=== PATIENT | female | born 1960 | race Caucasian/White ===

== ENCOUNTER 2018-04-07 21:44 | Inpatient (IN) | payer MEDICAID ==
[~2018-04-07] VITALS: Ht 167.6 cm; Wt 97.5 kg
[2018-04-07 21:51] VITALS: BP 129/73
[2018-04-07] MEDS ORDERED: PIPERACILLIN/TAZOBACTAM 3.375 GM in DEXTROSE 5% 50 ML IV ONE (22:15)
[2018-04-07] MEDS ORDERED: ACETAMINOPHEN EXTRA STRENGTH 500 MG TAB PO ONE (22:15)
[2018-04-07] MEDS ORDERED: LORazepam 2 MG/ML VIAL IVP ONE (22:15)
[2018-04-07] MEDS ORDERED: NACL 0.9% 2,500 ML IV ONE (22:15)
[2018-04-07] MEDS ORDERED: PIPERACILLIN/TAZOBACTAM 3.375 GM VIAL IV ONE (22:29)
[2018-04-07 22:45] LABS: ANION GAP 5.7 (8-16); CARBON DIOXIDE 29.2 mmol/L (21-32); POTASSIUM 3.9 mmol/L (3.5-5.1); TOTAL BILIRUBIN 0.5 mg/dL (0.0-1.0)
[2018-04-07 23:04] LABS: HEMATOCRIT 34.7 % (36-48); MEAN CORPUSCULAR HEMOGLOBIN 26 pg (27-31); MEAN CORPUSCULAR HGB CONC 32 g/dL (33-37); MEAN CORPUSCULAR VOLUME 82.8 fL (80-94); PLATELET COUNT (AUTO) 280 K/uL (140-450); RED BLOOD CELL COUNT(AUTO) 4.18 MIL/uL (4.20-5.40); RED CELL DISTRIBUTION WIDTH 16.4 % (11.6-13.7)
[2018-04-07 23:16] LABS: BARBITURATE, URINE NEG. ng/ml (NEG <=200); BENZODIAZEPINE, URINE NEG. ng/mL (NEG <=200); CANNABINOID, URINE POS. ng/mL (NEG <=50); COCAINE, URINE NEG. ng/mL (NEG <=300); OPIATE, URINE POS. ng/mL (NEG <=2000); PHENCYCLIDINE SCREEN,URINE NEG. ng/mL (NEG <=25)
[2018-04-07 23:28] LABS: WHITE BLOOD COUNT (AUTO) 19.6 K/uL (4.8-10.8)
[2018-04-07 23:29] LABS: LYMPHOCYTES % (MANUAL) 7 % (20-46); MONOCYTES % (MANUAL) 5 % (5-12)
[2018-04-07 23:38] LABS: PROTHROMBIN TIME 10.4 secs (10.8-13.4)
[2018-04-07] MEDS ORDERED: VANCOMYCIN 1,000 MG in DEXTROSE 5% 250 ML IV ONE (23:55)
[2018-04-07 23:59] LABS: APPEARANCE,URINE CLOUDY (CLEAR); BILIRUBIN,URINE NEGATIVE (NEGATIVE); BLOOD, URINE 3+ (NEGATIVE); COLOR,URINE YELLOW (YELLOW); LEUKOCYTE ESTERASE ,URINE 2+ (NEGATIVE); NITRITE, URINE NEGATIVE (NEGATIVE); UGLUCOSE NEGATIVE (NEGATIVE)
[2018-04-08 00:01] LABS: RBC,URINE TOO NUMEROUS TO COUN /HPF (0-5); WBC,URINE TOO MANY TO COUNT /HPF (0-5)
[2018-04-08] MEDS ORDERED: VANCOMYCIN 1,000 MG VIAL ONE (00:06)
[2018-04-08] MEDS ORDERED: KETOROLAC 30 MG/ML VIAL IVP ONE (00:35)
[2018-04-08] MEDS ORDERED: ONDANSETRON 4 MG/2 ML VIAL IM/IVP PRN (01:10)
[2018-04-08] MEDS ORDERED: MORPHINE SULFATE 4 MG/ML SYR IVP PRN (01:10)
[2018-04-08] MEDS ORDERED: LORazepam 2 MG/ML VIAL IM/IVP PRN ×2 (01:10→16:55)
[2018-04-08] MEDS ORDERED: DOCUSATE SODIUM 100 MG GELCAP PO PRN (01:10)
[2018-04-08] MEDS ORDERED: ACETAMINOPHEN 325 MG TAB PO PRN (01:10)
[2018-04-08 01:49] LABS: MAGNESIUM 1.6 mg/dL (1.8-2.4); PHOSPHORUS 2.4 mg/dL (2.5-4.9); THYROID STIMULATING HORMONE 1.88 uIU/mL (0.34-3.74)
[2018-04-08 02:00] VITALS: BP 110/70
[2018-04-08] MEDS: NACL 0.9% 1,000 ML IV SCH ×3 (02:02→23:21)
[2018-04-08 04:00] VITALS: BP 105/65
[2018-04-08] MEDS ORDERED: VANCOMYCIN PER PHARMACY MC PRN (04:00)
[2018-04-08] MEDS ORDERED: MECLIZINE 25 MG TAB PO PRN (04:00)
[2018-04-08] MEDS ORDERED: SODIUM PHOS / POTASSIUM PHOS 1 PKT PDR PO SCH (04:30)
[2018-04-08] MEDS ORDERED: MAG SULF 2000 MG/WATER PREMIX 50 ML IV SCH (04:30)
[2018-04-08] MEDS: PIPER/TAZO 3.375GM/D5W PREMIX 50 ML IV SCH ×4 (05:14→23:21)
[2018-04-08] MEDS ORDERED: PIPERACILLIN/TAZOBACTAM 3.375 GM VIAL IV ONE (05:17)
[2018-04-08 07:21] LABS: HEMATOCRIT 33.4 % (36-48); HEMOGLOBIN 10.4 g/dL (12.0-16.0); PLATELET COUNT (AUTO) 236 K/uL (140-450); RED BLOOD CELL COUNT(AUTO) 3.97 MIL/uL (4.20-5.40); RED CELL DISTRIBUTION WIDTH 16.9 % (11.6-13.7)
[2018-04-08 07:27] LABS: MEAN CORPUSCULAR HEMOGLOBIN 26 pg (27-31); MEAN CORPUSCULAR HGB CONC 31 g/dL (33-37); MEAN CORPUSCULAR VOLUME 84.1 fL (80-94)
[2018-04-08] MEDS ORDERED: MORPHINE SULFATE 2 MG/ML SYR IVP PRN (07:46)
[2018-04-08 07:49] LABS: ANION GAP 2.6 (8-16); CARBON DIOXIDE 26.7 mmol/L (21-32); CREATININE 0.9 mg/dL (0.6-1.3); POTASSIUM 3.3 mmol/L (3.5-5.1)
[2018-04-08 07:50] LABS: PHOSPHORUS 3.4 mg/dL (2.5-4.9)
[2018-04-08 08:00] VITALS: BP 150/85
[2018-04-08 09:04] LABS: MAGNESIUM 13.7 mg/dL (1.8-2.4)
[2018-04-08 09:12] LABS: LYMPHOCYTES % (MANUAL) 7 % (20-46); MONOCYTES % (MANUAL) 4 % (5-12)
[2018-04-08] MEDS: LORazepam 2 MG/ML VIAL IM/IVP PRN ×2 (10:16→16:46)
[2018-04-08 12:00] VITALS: BP 127/68
[2018-04-08] MEDS: VANCOMYCIN 1GM/DEXT 5% PREMIX 200 ML IV SCH (13:27)
[2018-04-08 16:00] VITALS: BP 122/74
[2018-04-08] MEDS ORDERED: cloNIDine 0.1 MG TAB PO SCH (16:45)
[2018-04-08] MEDS ORDERED: LORazepam 2 MG/ML VIAL IVP ONE (19:30)
[2018-04-08 20:00] VITALS: BP 112/64
[2018-04-08] MEDS: HYDROcodone/APAP 5/325 MG 1 TAB TAB PO PRN (20:50)
[2018-04-09] VITALS: BP 96/63
[2018-04-09] MEDS: VANCOMYCIN 1GM/DEXT 5% PREMIX 200 ML IV SCH (00:44)
[2018-04-09 04:00] VITALS: BP 122/77
[2018-04-09] MEDS: PIPER/TAZO 3.375GM/D5W PREMIX 50 ML IV SCH ×3 (05:14→17:49)
[2018-04-09] MEDS: HYDROcodone/APAP 5/325 MG 1 TAB TAB PO PRN (05:18)
[2018-04-09 06:21] LABS: BASOPHILS % (AUTO) 0.2 % (0.0-2.0); EOSINOPHILS # (AUTO) 0.1 K/uL (0-0.4); HEMOGLOBIN 10.8 g/dL (12.0-16.0); LYMPHOCYTES # (AUTO) 1.2 K/uL (2.5-16.5); LYMPHOCYTES % (AUTO) 8.6 % (20.5-51.1); MEAN CORPUSCULAR HEMOGLOBIN 27 pg (27-31); MEAN CORPUSCULAR HGB CONC 32 g/dL (33-37); MEAN CORPUSCULAR VOLUME 83.6 fL (80-94); MONOCYTES # (AUTO) 1.2 K/uL (0.8-1.0); MONOCYTES % (AUTO) 8.6 % (1.7-9.3); NEUTROPHILS # (AUTO) 11.1 K/uL (1.8-7.7); NEUTROPHILS % (AUTO) 81.6 % (42.2-75.2); PLATELET COUNT (AUTO) 220 K/uL (140-450); RED BLOOD CELL COUNT(AUTO) 4.07 MIL/uL (4.20-5.40); RED CELL DISTRIBUTION WIDTH 16.9 % (11.6-13.7); WHITE BLOOD COUNT (AUTO) 13.7 K/uL (4.8-10.8)
[2018-04-09 07:52] LABS: ANION GAP 12.1 (8-16); CARBON DIOXIDE 25.2 mmol/L (21-32); CREATININE 0.8 mg/dL (0.6-1.3); POTASSIUM 3.3 mmol/L (3.5-5.1)
[2018-04-09 07:54] LABS: CHOL/HDL RATIO 7.1 (1-4.5)
[2018-04-09 07:55] LABS: MAGNESIUM 2.2 mg/dL (1.8-2.4); PHOSPHORUS 2.2 mg/dL (2.5-4.9)
[2018-04-09 08:00] VITALS: BP 97/70
[2018-04-09] MEDS ORDERED: METHADONE 10 MG TAB PO SCH (10:30)
[2018-04-09] MEDS ORDERED: SODIUM PHOS / POTASSIUM PHOS 1 PKT PDR PO SCH (11:00)
[2018-04-09] MEDS: NACL 0.9% 1,000 ML IV SCH ×2 (11:26→21:28)
[2018-04-09 12:00] VITALS: BP 119/72
[2018-04-09] MEDS: VANCOMYCIN 750 MG in DEXTROSE 5% 250 ML IV SCH ×2 (13:32→21:28)
[2018-04-09] MEDS ORDERED: POTASSIUM CHLORIDE 10 MEQ TABER PO SCH (14:30)
[2018-04-09] MEDS: KETOROLAC 30 MG/ML VIAL IM PRN (14:40)
[2018-04-09 16:00] VITALS: BP 120/95
[2018-04-09 20:00] VITALS: BP 116/79
[2018-04-10] VITALS: BP 99/60
[2018-04-10] MEDS: PIPER/TAZO 3.375GM/D5W PREMIX 50 ML IV SCH ×3 (00:59→12:53)
[2018-04-10] MEDS: KETOROLAC 30 MG/ML VIAL IM PRN (03:54)
[2018-04-10] MEDS: VANCOMYCIN 750 MG in DEXTROSE 5% 250 ML IV SCH ×2 (03:56→13:00)
[2018-04-10 04:00] VITALS: BP 111/76
[2018-04-10] MEDS: NACL 0.9% 1,000 ML IV SCH (05:12)
[2018-04-10 06:32] LABS: BASOPHILS % (AUTO) 0.5 % (0.0-2.0); EOSINOPHILS # (AUTO) 0.2 K/uL (0-0.4); EOSINOPHILS % (AUTO) 3.2 % (0.0-4.0); HEMATOCRIT 29.8 % (36-48); HEMOGLOBIN 9.6 g/dL (12.0-16.0); LYMPHOCYTES # (AUTO) 1.4 K/uL (2.5-16.5); LYMPHOCYTES % (AUTO) 18.1 % (20.5-51.1); MEAN CORPUSCULAR HEMOGLOBIN 27 pg (27-31); MEAN CORPUSCULAR HGB CONC 32 g/dL (33-37); MEAN CORPUSCULAR VOLUME 83.5 fL (80-94); MONOCYTES # (AUTO) 0.9 K/uL (0.8-1.0); MONOCYTES % (AUTO) 12.1 % (1.7-9.3); NEUTROPHILS # (AUTO) 5.1 K/uL (1.8-7.7); NEUTROPHILS % (AUTO) 66.1 % (42.2-75.2); PLATELET COUNT (AUTO) 234 K/uL (140-450); RED BLOOD CELL COUNT(AUTO) 3.57 MIL/uL (4.20-5.40); WHITE BLOOD COUNT (AUTO) 7.7 K/uL (4.8-10.8)
[2018-04-10 06:57] LABS: MAGNESIUM 1.9 mg/dL (1.8-2.4); PHOSPHORUS 2.9 mg/dL (2.5-4.9)
[2018-04-10 07:03] LABS: ANION GAP 7.5 (8-16); CARBON DIOXIDE 27.3 mmol/L (21-32); CREATININE 0.8 mg/dL (0.6-1.3); POTASSIUM 3.8 mmol/L (3.5-5.1)
[2018-04-10] MEDS ORDERED: SULF-58 PO (07:57)
[2018-04-10] MEDS ORDERED: ATOR20TA40 PO (07:57)
[2018-04-10] MEDS ORDERED: ASPI-1173 PO (07:57)
[2018-04-10 08:00] VITALS: BP_SYST 111; BP_SYST 115; BP_DIAS 76
[2018-04-10] MEDS ORDERED: ATORVASTATIN 20 MG TAB PO SCH (09:00)
[2018-04-10] MEDS ORDERED: ECOTRIN 81 MG TABEC PO SCH (09:00)
[2018-04-10] MEDS ORDERED: METHADONE 10 MG TAB PO SCH (09:00)
== END 2018-04-10 14:50 | disposition home or self-care (01) | DRG 720 ==
LOC: MED 21:44 → MTU 04-08 01:07
PROVIDERS: ADMIT General Practice; ATTEND General Practice
DX: A41.9 Sepsis, unspecified organism (principal); G92 Toxic encephalopathy; E44.0 Moderate protein-calorie malnutrition; E83.39 Other disorders of phosphorus metabolism; E83.42 Hypomagnesemia; L03.115 Cellulitis of right lower limb; E87.1 Hypo-osmolality and hyponatremia; F19.10 Other psychoactive substance abuse, uncomplicated; N39.0 Urinary tract infection, site not specified; E66.9 Obesity, unspecified; D64.9 Anemia, unspecified; R31.9 Hematuria, unspecified; I70.202 Unspecified atherosclerosis of native arteries of extremities, left leg; L03.116 Cellulitis of left lower limb; Z68.29 Body mass index [BMI] 29.0-29.9, adult; Y92.89 Other specified places as the place of occurrence of the external cause
CPT/HCPCS: 36415; 70450; 71045; 80048; 80053; 80202; 80305; 81001; 82140; 82150; 83036; 83605; 83690; 83735; 83880; 84100; 84443; 84484; 85025; 85610; 85730; 87040; 87081; 87086; 87804; 92610; 93005; 93925; 93970; 96365; 96367; 96375; 97110; 97116; 97530; 99291; C1758; J1644; J1885; J2060; J2270; J2543; J3370; J3475; J7030; J7060; Q0092